=== PATIENT | female | born 1945 | race Caucasian/White ===

== ENCOUNTER 2017-08-19 15:46 | Emergency (ER) | payer OTHER ==
[~2017-08-19] VITALS: Ht 157.5 cm; Wt 62.6 kg
[~2017-08-19 15:46] MED LIST: AMLODIPINE BES2.5 MG PO; CIPRO500 MG PO; FLAGYL500MG PO; INTESTINEX680 MG PO; LEVSIN/SL0.125 MG SL; ORPH100T PO; PERCOCET 5/3251 TAB PO; SYNTHROID50 MCG PO; ULTRAM50 MG PO
== END 2017-08-19 18:06 | disposition home or self-care (01) ==
LOC: ER 15:46
DX: J11.1 Influenza due to unidentified influenza virus with other respiratory manifestations (principal)

== ENCOUNTER 2018-12-27 14:37 | Emergency (ER) | payer OTHER ==
[~2018-12-27] VITALS: Ht 152.4 cm; Wt 59.9 kg
== END 2018-12-27 21:59 | disposition home or self-care (01) ==
LOC: ER 14:37
DX: M54.31 Sciatica, right side (principal)

== ENCOUNTER 2019-01-04 12:04 | Outpatient (CLI) | payer OTHER | END 2019-01-04 12:06 | disposition home or self-care (01) | LOC: RAD 12:04 | DX: M25.561 Pain in right knee (principal); M25.551 Pain in right hip ==

== ENCOUNTER → 2020-02-11 | Outpatient (CLI) | payer OTHER | END | disposition home or self-care (01) | LOC: MAMO-SONO 11:31 | PROVIDERS: ATTEND Internal Medicine | DX: Z12.31 Encounter for screening mammogram for malignant neoplasm of breast (principal) ==

== ENCOUNTER 2022-01-12 10:28 | Outpatient (CLI) | payer OTHER | END 2022-01-12 10:32 | disposition home or self-care (01) | LOC: SONOGRAMA 10:28 | PROVIDERS: ATTEND Physical Medicine & Rehabilitation Pediatric Rehabilitation Medicine | DX: M75.112 Incomplete rotator cuff tear or rupture of left shoulder, not specified as traumatic (principal); M54.14 Radiculopathy, thoracic region ==